=== PATIENT | male | born 1955 | race Caucasian/White ===

== ENCOUNTER 2020-09-23 22:27 | Emergency (ER) | payer MEDICARE, OTHER ==
[2020-09-23] MEDS ORDERED: Sodium Chloride 0.9% 10 ML Syringe FLUSH PRN (22:38)
[2020-09-23] MEDS ORDERED: Ondansetron 4 MG/2 ML SDV IVPUSH ONE (22:39)
[2020-09-23] MEDS: Sodium Chloride 0.9% 1,000 ML IV SCH ×2 (22:45→23:20)
--- NOTE | 2020-09-23 22:57 | EDM.PDOC ---
ED HPI GENERAL MEDICAL PROBLEM - General Chief Complaint: Abdominal Pain Stated Complaint: STOMACH ISSUES Time Seen by Provider: 09/23/20 22:37 Source of Information: Reports: Patient History Limitations: Reports: No Limitations - History of Present Illness INITIAL COMMENTS - FREE TEXT/NARRATIVE: Lopez is a 64-year-old male presenting to the ED for evaluation of epigastric pain, nausea, vomiting, and diarrhea. His symptoms started around 2 PM this afternoon. The patient ate breakfast at [facility] in [place] this morning and was feeling fine until about 2:00 when he started having loose, watery stools. Around 4 PM he was not feeling the greatest but he decided to go out with the people he was residing with and they went to a bar where they ate roasted chicken and drank beer and [place]. The patient reportedly consumed 12 cans of beer which he states he does daily since he retired. This evening he started having significant epigastric discomfort and started vomiting repeatedly. He had an emesis in the ED waiting room. He denies any fever or chills. He states he has had 6 watery bowel movement since the onset of his symptoms. He is complaining of crampy abdominal pain predominantly in the epigastric region. He states that he normally goes to [facility] in [place] where he resides and just had a complete physical with his primary care provider that was unremarkable with the exception of morbid obesity and hypertension. Upper Abdomen Pain Score (Numeric/FACES): 6 - Related Data Allergies Allergy/AdvReac Type Severity Reaction Status Date / Time No Known Allergies Allergy Verified 09/23/20 23:08 Home Meds: Home Meds Aspirin [Low Dose Aspirin EC] 1 tab PO DAILY 09/23/20 [History] Fish Oil/DHA/EPA [Fish Oil 1,200 MG] 2 cap PO DAILY 09/23/20 [History] Montelukast [Singulair] 1 tab PO DAILY 09/23/20 [History] Multivitamin 1 tab PO DAILY 09/23/20 [History] ED ROS GENERAL - Review of Systems Review Of Systems: See Below Constitutional: Reports: Malaise, Decreased Appetite HEENT: Reports: No Symptoms Respiratory: Reports: No Symptoms Cardiovascular: Reports: No Symptoms Endocrine: Reports: No Symptoms GI/Abdominal: Reports: Abdominal Pain (Epigastric pain), Diarrhea, Nausea, Vomiting : Reports: No Symptoms Musculoskeletal: Reports: No Symptoms Skin: Reports: No Symptoms Neurological: Reports: No Symptoms Psychiatric: Reports: No Symptoms Hematologic/Lymphatic: Reports: No Symptoms Immunologic: Reports: No Symptoms ED EXAM, GI/ABD - Physical Exam Exam: See Below Exam Limited By: No Limitations General Appearance: Alert, Mild Distress, Obese Eyes: Bilateral: EOMI Throat/Mouth: Normal Inspection, Normal Lips, Normal Oropharynx, Normal Voice, No Airway Compromise Head: Atraumatic, Normocephalic Neck: Normal Inspection, Supple, Non-Tender, Full Range of Motion. No: Lymphadenopathy (R), Lymphadenopathy (L) Respiratory/Chest: No Respiratory Distress, Lungs Clear, Normal Breath Sounds Cardiovascular: Normal Peripheral Pulses, Regular Rate, Rhythm, No Murmur GI/Abdominal Exam: Normal Bowel Sounds, Non-Tender, Distended (Protuberant abdomen). No: Guarding, Rigid, Rebound Back Exam: Normal Inspection, Full Range of Motion, Other (Scars from previous lumbar and cervical spine surgeries) Extremities: Normal Inspection, Normal Range of Motion Neurological: Alert, Oriented, Normal Cognition, No Motor/Sensory Deficits Psychiatric: Normal Affect, Normal Mood Skin Exam: Warm, Dry, Intact, Normal Color Lymphatic: No Adenopathy Course - Vital Signs Last Recorded V/S: Last Vital Signs Temp 36.8 C 09/23/20 22:57 Pulse 94 09/23/20 22:57 Resp 18 09/23/20 22:57 BP 180/90 H 09/23/20 22:57 Pulse Ox 94 L 09/23/20 22:57 - Orders/Labs/Meds Orders: Active Orders 24 hr Category Date Time Status Pantoprazole [ProTONIX IV] 80 mg Med 09/24/20 00:15 Ordered Sodium Chloride 0.9% [Normal Saline] 100 ml IV .BOLUS Promethazine [Phenergan] 12.5 mg Med 09/24/20 00:11 Ordered Sodium Chloride 0.9% [Normal Saline] 50 ml IV Q6H Sodium Chloride 0.9% [Normal Saline] 1,000 ml Med 09/23/20 22:45 Active IV ASDIRECTED Sodium Chloride 0.9% [Saline Flush] Med 09/23/20 22:38 Active 10 ml FLUSH ASDIRECTED PRN Saline Lock Insert [OM.PC] Routine Oth 09/23/20 22:38 Ordered EKG 12 Lead [EK] Routine Ther 09/23/20 22:38 Stop Req Medication Orders Sodium Chloride (Normal Saline) 1,000 mls @ 500 mls/hr IV ASDIRECTED AGNIESZKA Last Admin: 09/23/20 23:20 Dose: 500 mls/hr Documented by: Infusion: 09/23/20 23:20 Dose: 500 mls/hr Documented by: Admin: 09/23/20 22:45 Dose: 500 mls/hr Documented by: AMBAR Sodium Chloride (Sodium Chloride 0.9% 10 Ml Syringe) 10 ml FLUSH ASDIRECTED PRN PRN Reason: Keep Vein Open Last Admin: 09/23/20 23:21 Dose: 10 ml Documented by: AMBAR Labs: Laboratory Tests 09/23/20 09/23/20 09/23/20 Range/Units 22:50 22:50 22:50 WBC 10.6 (4.5-11.0) K/uL RBC 4.36 (4.30-5.90) M/uL Hgb 13.6 (12.0-15.0) g/dL Hct 40.0 (40.0-54.0) % MCV 92 (80-98) fL MCH 31 (27-31) pg MCHC 34 (32-36) % Plt Count 361 (150-400) K/uL Neut % (Auto) 67 H (36-66) % Lymph % (Auto) 23 L (24-44) % [place] % (Auto) 8 H (2-6) % Eos % (Auto) 1 L (2-4) % Baso % (Auto) 1 (0-1) % Sodium 135 L (140-148) mmol/L Potassium 4.4 (3.6-5.2) mmol/L Chloride 99 L (100-108) mmol/L Carbon Dioxide 25 (21-32) mmol/L Anion Gap 15.4 H (5.0-14.0) mmol/L BUN 26 H (7-18) mg/dL Creatinine 1.0 (0.8-1.3) mg/dL Est Cr Clr Drug Dosing 69.93 mL/min Estimated GFR (MDRD) > 60 (>60) Glucose 103 (74-106) mg/dL Calcium 8.9 (8.5-10.1) mg/dL Total Bilirubin 0.3 (0.2-1.0) mg/dL AST 37 (15-37) U/L ALT 49 (12-78) U/L Alkaline Phosphatase 92 (46-116) U/L Total Protein 7.0 (6.4-8.2) g/dL Albumin 3.7 (3.4-5.0) g/dL Globulin 3.3 (2.3-3.5) g/dL Albumin/Globulin Ratio 1.1 L (1.2-2.2) Lipase 190 (73-393) U/L Ethyl Alcohol 236 mg/dL Meds: Medications Generic Name Dose Route Start Last Admin Trade Name Freq PRN Reason Stop Dose Admin Sodium Chloride 1,000 mls @ 500 mls/hr 09/23/20 22:45 09/23/20 23:20 Normal Saline IV 500 mls/hr ASDIRECTED AGNIESZKA Administration Sodium Chloride 10 ml 09/23/20 22:38 09/23/20 23:21 Sodium Chloride 0.9% 10 Ml Syringe FLUSH 10 ml ASDIRECTED PRN Administration Keep Vein Open Discontinued Medications Generic Name Dose Route Start Last Admin Trade Name Freq PRN Reason Stop Dose Admin Ondansetron HCl 8 mg 09/23/20 22:39 09/23/20 22:45 Ondansetron 4 Mg/2 Ml Sdv IVPUSH 09/23/20 22:40 8 mg ONETIME ONE Administration Prochlorperazine Edisylate 10 mg 09/23/20 23:27 09/23/20 23:30 Prochlorperazine 10 Mg/2 Ml Sdv IVPUSH 09/23/20 23:28 10 mg ONETIME ONE Administration - Re-Assessments/Exams Free Text/Narrative Re-Assessment/Exam: 09/23/20 23:28 reviewed the patient's labs including a CBC, comprehensive metabolic panel, lipase, of which she has mild dehydration with BUN elevated at 26 and a normal creatinine of 1.0. His CBC is unremarkable. His lipase is normal. The likelihood of acute pancreatitis is exceedingly low with this. His alcohol level is 236 which seems a bit low with the consumption of 12 beers and [place]. I am highly suspicious that breakfast may have been the nidus for his onset as his symptoms started roughly 8 hours after consuming eggs, hernandez, and hashbrowns. No one else that ate similar meals were ill. It is conceivable that he may have had Salmonella from one of the eggs. The patient received a liter of IV normal saline and Zofran 8 mg IV push but was still having considerable nauseousness so he also gave him Compazine 10 mg IV push. As his electrolytes are not terribly out of whack, I believe the patient will be able to go home tonight with a prescription for oral Zofran and instructions to stick with a bland diet and avoid alcohol until his symptoms mg for 24 hours. 09/24/20 00:12 the patient is still having significant nausea although he has not vomited. He is having considerable abdominal pain. Despite giving him the Zofran 8 mg and the Compazine 10 mg IV, we will give him Protonix 80 mg IV and Phenergan 12.5 mg IV to see if this helps improve his situation. Again this appears to be a combination of likely food poisoning and alcohol intoxication causing alcohol gastritis. Departure - Departure Time of Disposition: 00:49 Disposition: Home, Self-Care 01 Clinical Impression: Food poisoning due to bacteria, Acute alcoholic gastritis without hemorrhage Nausea & vomiting Qualifiers: Vomiting type: unspecified Vomiting Intractability: intractable Qualified Code(s): R11.2 - Nausea with vomiting, unspecified Diarrhea Qualifiers: Diarrhea type: presumed infectious Qualified Code(s): R19.7 - Diarrhea, unspecified - Discharge Information Instructions: Food Choices to Help Relieve Diarrhea, Adult, Food Poisoning, Nausea, Adult, [id number] Referrals: PCP,None [Primary Care Provider] - Forms: ED Department Discharge Care Plan Goals: Based on your history of presenting illness, exam and laboratory results, appears to be most likely related to food poisoning. It is likely that breakfast is the cause. We will continue to treat your nausea with Zofran which I have provided to prescription in the [employer] machine. I would stick to a bland diet for the next 24 hours and avoid alcohol until your symptoms resolve. I suspect that your diarrhea will resolve within 24 hours. Avoid dairy at this time. Work-up showed no other evidence for worrisome findings like pancreatitis or liver failure. Sepsis Event Note (ED) - Focused Exam Vital Signs: Vital Signs Temp Pulse Resp BP Pulse Ox 09/23/20 22:57 36.8 C 94 18 180/90 H 94 L - Problem List & Annotations (1) Diarrhea SNOMED Code(s): 82650633 Code(s): R19.7 - DIARRHEA, UNSPECIFIED Status: Acute Priority: High Current Visit: Yes Qualifiers: Diarrhea type: presumed infectious Qualified Code(s): R19.7 - Diarrhea, unspecified (2) Food poisoning due to bacteria SNOMED Code(s): 56302174 Code(s): A05.9 - BACTERIAL FOODBORNE INTOXICATION, UNSPECIFIED Status: Acute Priority: High Current Visit: Yes (3) Nausea & vomiting SNOMED Code(s): 60319321 Code(s): R11.2 - NAUSEA WITH VOMITING, UNSPECIFIED Status: Acute Priority: High Current Visit: Yes Qualifiers: Vomiting type: unspecified Vomiting Intractability: intractable Qualified Code(s): R11.2 - Nausea with vomiting, unspecified (4) Acute alcoholic gastritis without hemorrhage SNOMED Code(s): 0853086 Code(s): K29.20 - ALCOHOLIC GASTRITIS WITHOUT BLEEDING Status: Acute Priority: High Current Visit: Yes - Problem List Review Problem List Initiated/Reviewed/Updated: Yes - My Orders Last 24 Hours: My Active Orders 09/23/20 22:38 Sodium Chloride 0.9% [Saline Flush] 10 ml FLUSH ASDIRECTED PRN Saline Lock Insert [OM.PC] Routine EKG 12 Lead [EK] Routine 09/23/20 22:45 Sodium Chloride 0.9% [Normal Saline] 1,000 ml IV ASDIRECTED 09/24/20 00:11 Promethazine [Phenergan] 12.5 mg Sodium Chloride 0.9% [Normal Saline] 50 ml IV Q6H 09/24/20 00:15 Pantoprazole [ProTONIX IV] 80 mg Sodium Chloride 0.9% [Normal Saline] 100 ml IV .BOLUS - Assessment/Plan Last 24 Hours: My Active Orders 09/23/20 22:38 Sodium Chloride 0.9% [Saline Flush] 10 ml FLUSH ASDIRECTED PRN Saline Lock Insert [OM.PC] Routine EKG 12 Lead [EK] Routine 09/23/20 22:45 Sodium Chloride 0.9% [Normal Saline] 1,000 ml IV ASDIRECTED 09/24/20 00:11 Promethazine [Phenergan] 12.5 mg Sodium Chloride 0.9% [Normal Saline] 50 ml IV Q6H 09/24/20 00:15 Pantoprazole [ProTONIX IV] 80 mg Sodium Chloride 0.9% [Normal Saline] 100 ml IV .BOLUS
[2020-09-23] MEDS ORDERED: Prochlorperazine 10 MG/2 ML SDV IVPUSH ONE (23:27)
[2020-09-24] MEDS ORDERED: Promethazine 12.5 MG in Sodium Chloride 0.9% 50 ML IV PRN (00:11)
[2020-09-24] MEDS ORDERED: Pantoprazole 80 MG in Sodium Chloride 0.9% 100 ML IV SCH (00:15)
== END 2020-09-24 01:04 | disposition home or self-care (01) ==
LOC: JP.ED 22:27
DX: A05.9 Bacterial foodborne intoxication, unspecified (principal); K29.20 Alcoholic gastritis without bleeding; K29.00 Acute gastritis without bleeding; F10.10 Alcohol abuse, uncomplicated; R79.1 Abnormal coagulation profile; E66.01 Morbid (severe) obesity due to excess calories; Z68.20 Body mass index [BMI] 20.0-20.9, adult; Y90.7 Blood alcohol level of 200-239 mg/100 ml
CPT/HCPCS: 36415; 80053; 80307; 83690; 85025; 96365; 96367; 96375; 99283; 99284-25; C9113; J0780; J2405; J2550; J7030